=== PATIENT | male | born 1970 | race African-American/Black ===

== ENCOUNTER 2021-05-28 17:09 | Emergency (ER) | payer SELFPAY ==
[2021-05-28] MEDS ORDERED: Lisinopril 10 MG TAB ONE (17:49)
== END 2021-05-28 17:56 | disposition home or self-care (01) ==
LOC: MADERS 17:09
DX: I10 Essential (primary) hypertension (principal); E11.9 Type 2 diabetes mellitus without complications; Z79.899 Other long term (current) drug therapy
CPT/HCPCS: 99283